=== PATIENT | female | born 1945 | race Caucasian/White ===

== ENCOUNTER → 2018-10-04 | Day surgery (SDC) | payer MEDICARE ==
[2018-10-03 14:53] LABS: BASOPHILS % 0.4 % (0.0-1.0); EOSINOPHILS # (AUTO) 0.2 (0.0-0.4); EOSINOPHILS % 1.9 % (0.0-6.0); HEMATOCRIT 38.9 % (34.2-44.1); HEMOGLOBIN 12.5 g/dL (12.0-16.0); LYMPHOCYTES # (AUTO) 1.5 (1.0-3.2); LYMPHOCYTES % 19.7 % (18.0-39.1); MEAN CORPUSCULAR HGB CONC 32.1 g/dL (31-35); MEAN CORPUSCULAR VOLUME 87.2 fL (81-99); MONOCYTES # (AUTO) 0.4 (0.2-0.8); MONOCYTES % 5.6 % (4.4-11.3); NEUTROPHILS # (AUTO) 5.6 (2.1-6.9); NEUTROPHILS % 72.1 % (38.7-80.0); PLATELET COUNT 181 x10e3/uL (140-360); RED BLOOD COUNT 4.46 x10e6/uL (3.6-5.1); RED CELL DISTRIBUTION WIDTH 14.3 % (11.7-14.4)
[~2018-10-04] MED LIST: ATORVASTATIN CA20 MG PO; CLONIDINE HCL0.1 MG PO; CLOPIDOGREL75 MG PO; ECOTRIN81 MG PO; ENALAPRIL MALEA20 MG PO; FENTANYL CITRATE/PF 100MCG/2 ML INJ ONE; GABAPENTIN300 MG PO; GLIMEPIRIDE4 MG PO; HYDROCHLOROTHIA25 MG PO; METOPROLOL TART50 MG PO; MIDAZOLAM HCL 2 MG/2 ML VIAL ONE; NIFEDIPINE ER30 M1 PO; PROPOFOL IV EMULSION 10 MG/ML 50 ML VIAL ONE; SERTRALINE HCL100 MG PO; TRADJENTA5 MG PO
--- OUTSIDE RECORDS SUMMARY | 2018-10-04 06:53 | XMS REPORT | Summary of Care ---
Author Organization Unknown Address Unknown Phone Unavailable Encounter [facility] Encntr_alias([facility]) [id number] Date(s): 07/04/13 - 07/04/13 [facility] Outpatient Imaging - [address] [address]- [place] Discharge Disposition: Home Physician Attending: Benjamin Andrea MD Reason for Visit V76.11 - SCREEN MAMMOGRA Problem List No data available for this section Allergies, Adverse Reactions, Alerts No data available for this section Medications No data available for this section Medications Administered During Your Visit No data available for this section Immunizations No data available for this section
--- OUTSIDE RECORDS SUMMARY | 2018-10-04 06:53 | XMS REPORT | Summary of Care ---
Author Author [facility] - [place] Organization [facility] [place] Address Unknown Phone Unavailable Encounter [facility] Encntr_alias([facility]) [id number] Date(s): 01/13/18 - 01/13/18 [facility] Outpatient Imaging - [place] [address] [place] [phone] Encounter Diagnosis Encounter for screening mammogram for malignant neoplasm of breast (Final) - 01/16/18 Discharge Disposition: Home or Self Care Attending Physician: Tho Ku MD Referring Physician: Tho Ku MD Vital Signs No data available for this section Problem List No data available for this section Allergies, Adverse Reactions, Alerts No data available for this section Medications No data available for this section Results No data available for this section Immunizations No data available for this section Procedures No data available for this section Social History No data available for this section Assessment and Plan No data available for this section
--- OUTSIDE RECORDS SUMMARY | 2018-10-04 06:53 | XMS REPORT | Continuity of Care Document ---
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 Name Role Phone [employer] Unavailable Unavailable Problems Problem Status Onset Date Classification Date Reported Comments Source Encounter for screening mammogram for malignant neoplasm of breast 01/17/2018 08/03/2018 [facility] Z12.31 - ENCNTR SCREEN MAMMOGRAM FOR MA Active 01/13/2018 [facility] LEFT LEG PAIN/CALF PAIN Active 10/24/2013 [facility] 611.72 BREAST LUMP IN FEMALE Active 06/19/2012 [facility] 611.72 - LUMP OR MASS IN Active 06/15/2012 [facility] V76.12 - SCREEN MAMMOGRA 733.00 - OSTEOPOROSIS NO Active 11/21/2011 [facility] Medications No Data Provided for This Section Allergies, Adverse Reactions, Alerts No Known Medication Allergies Immunizations No Data Provided for This Section Results No Data Provided for This Section Pathology Reports No Data Provided for This Section Diagnostic Reports Report Value Date Source Breast Mammo Scrn JAVI incl CAD MA BILATERAL DIGITAL SCREENING MAMMOGRAM WITH CAD: 01/13/2018 CLINICAL: Screening/Z12.31. Current study was evaluated with a Computer Aided Detection (CAD) system. COMPARISON:Comparison is made to exams dated: 07/04/2013 mammogram, 12/09/2011 mammogram - [facility], and 09/04/2008 mammogram - [facility]. TECHNIQUE: Mammographic views were obtained using digital acquisition. Current study was also evaluated with a Computer Aided Detection (CAD) system. FINDINGS: The tissue of both breasts is almost entirely fat. No significant masses, calcifications, or other findings are seen in either breast. There has been no significant interval change. IMPRESSION: NEGATIVE RECOMMENDATION:There is no mammographic evidence of malignancy. A 1 year screening mammogram is recommended.(01/14/2019) This exam was interpreted at [id number] at [facility]. Professional services are provided by the [facility]. Belinda Sommer M.D. /penrad:01/14/2018 11:02:09 Brand Strategist(s): RT Evelio(R)(M), [facility] letter sent: BI-RADS 1/2 Mammogram BI-RADS: 1 Negative 01/13/2018 [facility] Shoulder series DX Right shoulder series 3 views: COMPARISON: No priors FINDINGS: Mild sclerotic change is present in the region of the right greater and lesser tuberosities. Findings likely related to degenerative change. No evidence for fracture subluxation or any other significant bony abnormality is noted. SL:10/24/2013 [facility] Ext Lower Venous Doppler Unilat US Left Lower Extremity Doppler. History: calf pain Comparison: None. Findings: Grayscale, color Doppler, and spectral wave form analysis was performed of the left lower extremity. There is normal compressibility and wave form throughout the left lower extremity with adequate response to augmentation. Impression: 1. Negative for deep venous thrombosis of the left lower extremity. SL: 10/24/2013 [facility] Bone Density-Dual Energy Absorptionmetry - Bone Density- Dual Energy Absorptionmetry BONE DENSITY EVALUATION: 07/04/2013 CLINICAL DATA: Post menopausal. COMPARISON: 12/09/2011 AP L1-L4 region of spine using Lunar Dual Energy X-Ray Absorptiometry from [facility] with reported normal fracture risk, BMD of 1.298g/cm2, T-score of 1.00, Z-score of 1.50 and 116.0% age-match bone mineralization. 12/09/2011 Right hip using Lunar Dual Energy X-Ray Absorptiometry from [facility] with reported normal fracture risk, BMD of 0.944g/cm2, T-score of -0.50 and 100.0% age-match bone mineralization. 12/09/2011 Left hip using Lunar Dual Energy X-Ray Absorptiometry from [facility] with reported normal fracture risk, BMD of 0.961g/cm2, T-score of -0.40, Z-score of 0.20 and 102.0% age-match bone mineralization. FINDINGS: Bone density evaluation was performed 07/04/2013 on the AP L1-L4 region of spine using Lunar Dual Energy X-Ray Absorptiometry. The BMD average for the exam is 1.311 g/cm2. The T-score is 1.10 and the Z-score is 1.60. These values indicate 117.0% for age-matched controls. Since the previous similar exam of 12/09/2011, there has been a +0.013 or +1.0% change in the BMD value which represents no significant interval change in bone density. This matches the World Health Organization's criteria for normal bone density and places the patient within normal limits of fracture risk. An additional bone density evaluation was performed 07/04/2013 on the right femur neck using [employer] Dual Energy X-Ray Absorptiometry. The BMD average for the exam is 0.839 g/cm2. The T-score is -1.40 and the Z-score is -0.50. These values indicate 92.0% for age-matched controls. This matches the World Health Organization's criteria for osteopenia and places the patient at a medium risk for fracture. An additional bone density evaluation was performed 07/04/2013 on the right hip using [employer] Dual Energy X-Ray Absorptiometry. The BMD average for the exam is 0.974 g/cm2. The T-score is -0.30 and the Z-score is 0.40. These values indicate 105.0% for age-matched controls. Since the previous similar exam of 12/09/2011, there has been a +0.030 or +3.2% change in the BMD value which represents no significant interval change in bone density. This matches the World Health Organization's criteria for normal bone density and places the patient within normal limits of fracture risk. An additional bone density evaluation was performed 07/04/2013 on the left femur neck using Lunar Dual Energy X-Ray Absorptiometry. The BMD average for the exam is 0.767 g/cm2. The T-score is -2.00 and the Z-score is -1.00. These values indicate 84.0% for age-matched controls. This matches the World Health Organization's criteria for osteopenia and places the patient at a medium risk for fracture. An additional bone density evaluation was performed 07/04/2013 on the left hip using Lunar Dual Energy X-Ray Absorptiometry. The BMD average for the exam is 0.959 g/cm2. The T-score is -0.40 and the Z-score is 0.20. These values indicate 103.0% for age-matched controls. Since the previous similar exam of 12/09/2011, there has been a -0.002 or -0.2% change in the BMD value which represents no significant interval change in bone density. This matches the World Health Organization's criteria for normal bone density and places the patient within normal limits of fracture risk. IMPRESSION: OSTEOPENIA Patient is at medium risk for fracture. Dr. Larry Gonzalez M.D. eoc/penrad:07/04/2013 15:17:01 Brand Strategist: Shelly Verduzco, [facility] 07/04/2013 [facility] Digital Mammo Screening Javi MA - DIGITAL MAMMO SCREENING JAVI MA BILATERAL DIGITAL SCREENING MAMMOGRAM WITH CAD: 07/04/2013 CLINICAL: Routine. Current study was evaluated with a Computer Aided Detection (CAD) system. Comparison is made to exams dated: 01/31/2000 mammogram - [facility] and 07/02/2012 mammogram - [facility]. The tissue of both breasts is almost entirely fat. Acquired images are the best technically achievable. No significant masses, calcifications, or other findings are seen in either breast. There has been no significant interval change. IMPRESSION: BENIGN There is no mammographic evidence of malignancy. A screening mammogram in one year is recommended. Dr. Larry Gonzalez M.D. eoc/penrad:07/04/2013 14:04:00 Brand Strategist: Nessa US(R)(Wilian), [facility] This exam was dictated and interpreted by [id number] for ROZINA Mahmood. letter sent: Normal exam Mammogram BI-RADS: 2 Benign [facility] lumbar minimum 4 views History: Right lumbar radiculopathy. Comparison: None. Findings: There is no fracture, pars defect or subluxation. At the L1/2 and L2/3 levels, there is mild degenerative disc disease. At the L3/4 level, there is mild degenerative disc disease and at least mild facet degenerative changes. At the L4/5 level, there is mild degenerative disc disease and at least moderate facet degenerative changes, right side greater than left. At the L5/S1 level, there is at least moderate degenerative disc disease and facet degenerative changes. There is diffuse extensive aortoiliac atherosclerotic disease. Impression: 1. Multilevel L-spine degenerative changes. 2. Aortoiliac atherosclerotic disease. 09/06/2012 [facility] Breast US - BREAST US/L ULTRASOUND OF THE LEFT BREAST : 07/02/2012 CLINICAL: Pain. Comparison is made to exams dated: 07/02/2012 mammogram - [facility] and 12/09/2011 mammogram - [facility]. Color flow and real-time ultrasound were performed on the left breast. Leonard scale images of the real-time examination were reviewed. No abnormalities were seen sonographically in the left breast or the left axilla. IMPRESSION: NEGATIVE There is no sonographic evidence of malignancy. There is no mammographic or sonographic abnormality seen in the left breast to correspond with the area of clinical concern and pain which likely represent normal fibroglandular tissue, however clinical followup is recommended. A screening mammogram in one year is recommended. Jono Dubois sns/penrad:07/02/2012 16:25:37 Brand Strategist: Dominique Connor, [facility] letter sent: Benign Left Ultrasound BI-RADS: 1 Negative 07/02/2012 [facility] Digital Mammo DX Uni MA - DIGITAL MAMMO DX UNI MA/L UNILATERAL LEFT DIGITAL DIAGNOSTIC MAMMOGRAM: 07/02/2012 CLINICAL: 611.72. Comparison is made to exams dated: 12/09/2011 mammogram - [facility], 09/04/2008 mammogram - [facility] and 01/31/2000 mammogram - [facility]. Current study contains 3 films. The tissue of the left breast is predominantly fatty. No significant masses, calcifications, or other findings are seen in the breast. There has been no significant interval change. IMPRESSION: NEGATIVE There is no mammographic evidence of malignancy. A screening mammogram in one year is recommended. Jono almeida/penrad:07/02/2012 16:24:22 Brand Strategist: Beti Padron, [facility] letter sent: Normal exam Mammogram BI-RADS: 1 Negative 07/02/2012 [facility] Consultation Notes No Data Provided for This Section Discharge Summaries No Data Provided for This Section History and Physicals No Data Provided for This Section Vital Signs No Data Provided for This Section Encounters Location Location Details Encounter Type Encounter Number Reason For Visit Attending Provider ADM Date DC Date Status Source OD [id number] V76.12 - SCREEN MAMMOGRA 733.00 - OSTEOPOROSIS NO KRYSTEN ANDREA 12/09/2011 Active [facility] [id number] 611.72 BREAST LUMP IN FEMALE URIEL LABOY 07/02/2012 Active [facility] [id number] Krysten Andrea 07/04/2013 07/05/2013 [facility] [id number] Tho Ku 01/13/2018 01/14/2018 [facility] Procedures No Data Provided for This Section Assessment and Plan No Data Provided for This Section Plan of Care No Data Provided for This Section Social History Social History Date Source No data available for this section 01/14/2018 [facility] Family History No Data Provided for This Section Advance Directives No Data Provided for This Section Functional Status No Data Provided for This Section
[2018-10-04 08:47] VITALS: BP 110/50
== END | disposition home or self-care (01) ==
LOC: OR 06:24
PROVIDERS: ATTEND Internal Medicine Gastroenterology
DX: Z12.11 Encounter for screening for malignant neoplasm of colon (principal); D12.2 Benign neoplasm of ascending colon; K57.30 Diverticulosis of large intestine without perforation or abscess without bleeding; K64.8 Other hemorrhoids; Z71.3 Dietary counseling and surveillance; E11.9 Type 2 diabetes mellitus without complications; I25.10 Atherosclerotic heart disease of native coronary artery without angina pectoris; I10 Essential (primary) hypertension; I49.3 Ventricular premature depolarization; E66.01 Morbid (severe) obesity due to excess calories; Z01.810 Encounter for preprocedural cardiovascular examination; Z01.812 Encounter for preprocedural laboratory examination; Z79.02 Long term (current) use of antithrombotics/antiplatelets; Z79.82 Long term (current) use of aspirin; Z79.84 Long term (current) use of oral hypoglycemic drugs; Z95.5 Presence of coronary angioplasty implant and graft; Z87.891 Personal history of nicotine dependence
CPT/HCPCS: 36415; 45384; 45385; 82948; 85025; 88305; 93005; J2250; J3010